=== PATIENT | female | born 1990 | race Two or more races ===

== ENCOUNTER 2020-08-11 13:16 | Emergency (ER) | payer MEDICAID ==
--- NOTE | 2020-08-11 13:55 | EDM.PDOC ---
ED HPI GENERAL MEDICAL PROBLEM - General Chief Complaint: LAB RN Problem Stated Complaint: BLEEDING 13WKS Time Seen by Provider: 08/11/20 13:42 Source of Information: Reports: Patient, Family, RN Notes Reviewed History Limitations: Reports: No Limitations - History of Present Illness INITIAL COMMENTS - FREE TEXT/NARRATIVE: 30-year-old female presents emergency department with a complaint of vaginal bleeding she is a 2 para 1 currently at 13 weeks intrauterine started having some spotting a couple days ago and then today large gush of blood large amount of clots being passed complains of only headache she is not lightheaded at all abdominal Pain Score (Numeric/FACES): 8 - Related Data Allergies Allergy/AdvReac Type Severity Reaction Status Date / Time No Known Allergies Allergy Verified 08/11/20 13:30 Home Meds: Home Meds Vit No.78/Iron/Fa [Prenatabs FA] 1 each PO DAILY 08/11/20 [History] Past Medical History LAB RN History: Reports: Social & Family History - Tobacco Use Tobacco Use Status *Q: Never Tobacco User - Recreational Drug Use Recreational Drug Use: No ED ROS GENERAL - Review of Systems Review Of Systems: See Below Constitutional: Reports: No Symptoms Respiratory: Reports: No Symptoms Cardiovascular: Reports: No Symptoms GI/Abdominal: Reports: No Symptoms : Reports: Irregular Menses ED EXAM - Physical Exam Exam: See Below Text/Narrative:: Vaginal exam done in the presence of nursing staff I did evacuate a large amount of clot and blood 3 to 400 cc from the vaginal vault the os is open unknown appreciate any products of conception at this time Exam Limited By: No Limitations General Appearance: Alert, WD/WN, No Apparent Distress Respiratory/Chest: No Respiratory Distress Course - Vital Signs Last Recorded V/S: Last Vital Signs Temp 99.3 F 08/11/20 13:31 Pulse 110 H 08/11/20 14:52 Resp 12 08/11/20 13:31 BP 110/70 08/11/20 14:52 Pulse Ox 96 08/11/20 13:31 - Orders/Labs/Meds Orders: Active Orders 24 hr Category Date Time Status ABO/RH TYPE [BBK] Stat Lab 08/11/20 14:17 Results PATIENT RETYPE [BBK] Stat Lab 08/11/20 14:17 Results RH IMMUNE GLOBULIN [BBK] Routine Lab 08/11/20 15:22 Received Ketorolac [Toradol] Med 08/11/20 15:25 Once 60 mg IM ONETIME ONE Labs: Laboratory Tests 08/11/20 08/11/20 08/11/20 Range/Units 14:02 14:02 14:17 WBC 11.8 H (4.5-11.0) K/uL RBC 4.61 (3.30-5.50) M/uL Hgb 13.2 (12.0-15.0) g/dL Hct 40.5 (36.0-48.0) % MCV 88 (80-98) fL MCH 29 (27-31) pg MCHC 33 (32-36) % Plt Count 230 (150-400) K/uL Neut % (Auto) 82 H (36-66) % Lymph % (Auto) 13 L (24-44) % [place] % (Auto) 4 (2-6) % Eos % (Auto) 0 L (2-4) % Baso % (Auto) 0 (0-1) % HCG, Quant 1240 H (0-6) mIU/mL Blood Type O NEGATIVE Departure - Departure Time of Disposition: 15:26 Disposition: Home, Self-Care 01 Condition: Fair Clinical Impression: Complete - Discharge Information Instructions: Miscarriage, [id number] Referrals: PCP,None [Primary Care Provider] - Forms: ED Department Discharge Additional Instructions: Continue to use ibuprofen as needed for pain control, please follow-up with your primary care provider or your LAB RN upon return home Sepsis Event Note (ED) - Evaluation Sepsis Screening Result: No Definite Risk - Focused Exam Vital Signs: Vital Signs Temp Pulse Resp BP Pulse Ox 08/11/20 14:52 110 H 110/70 08/11/20 13:31 99.3 F 116 H 12 142/80 H 96 - My Orders Last 24 Hours: My Active Orders 08/11/20 14:17 ABO/RH TYPE [BBK] Stat PATIENT RETYPE [BBK] Stat 08/11/20 15:22 RH IMMUNE GLOBULIN [BBK] Routine 08/11/20 15:25 Ketorolac [Toradol] 60 mg IM ONETIME ONE - Assessment/Plan Last 24 Hours: My Active Orders 08/11/20 14:17 ABO/RH TYPE [BBK] Stat PATIENT RETYPE [BBK] Stat 08/11/20 15:22 RH IMMUNE GLOBULIN [BBK] Routine 08/11/20 15:25 Ketorolac [Toradol] 60 mg IM ONETIME ONE Plan: Assessment Acuity = acute Site and laterality = complete Etiology = unknown Manifestations = cramping abdominal pain Location of injury = Home Lab values = hemoglobin stable 13.5, beta-hCG at 1240 blood type is O- ultrasound consistent with complete Plan I did review lab work and ultrasound with the parents, because of her blood type she is given 300 mcg of RhoGam, and 60 mg Toradol while in the emergency department she will follow-up with her LAB RN upon return home This note was dictated using [employer] voice recognition software please call with any questions on syntax or grammar.
--- NOTE | 2020-08-11 15:21 | CRLUS ---
INDICATION: 13w iup vaginal bleeding HISTORY: Thirteen weeks gestational age. Vaginal bleeding. COMPARISON: None. TECHNIQUE: Pelvic ultrasound. Transabdominal imaging of the pelvis was obtained. FINDINGS: Uterine corpus measures 10.5 x 5.8 x 6.6 cm. Right ovary measures 4.0 x 3.1 x 3.4 cm. Left ovary measures 3.3 x 4.0 x 2.7 cm. Endometrial complex measures 5 mm in thickness. There is no intrauterine gestational sac, fetus, or extra ovarian adnexal mass. Subsequent imaging of the endometrium at the conclusion of the exam demonstrates heterogeneity, which could indicate blood products. Benign-appearing cyst in the right ovary which measures 3 centimeters in dimension. IMPRESSION: 1. There is no IUP identified. 2. There is no extraovarian adnexal mass or significant free fluid in the rectovaginal pouch of Gio. 3. Assuming a positive test, findings suggest a of uncertain location. 4. Suggest correlation with serum beta HCG, and both sonographic and serologic follow-up are advised. Dictated by Ramirez Multani MD @ 08/11/2020 3:20:26 PM Dictated by: Ramirez Multani MD @ 08/11/2020 15:20:35 (Electronically Signed)
[2020-08-11] MEDS ORDERED: Ketorolac 60 MG/2 ML SDV IM ONE (15:25)
== END 2020-08-11 16:21 | disposition home or self-care (01) ==
LOC: JP.ED 13:16
DX: O03.9 Complete or unspecified spontaneous abortion without complication (principal)
CPT/HCPCS: 36415; 76815; 84702; 85025; 86900; 86901; 96372; 99284; J1885; J2790

== ENCOUNTER 2022-03-07 21:56 | Emergency (ER) | payer MEDICAID ==
[2022-03-08] MEDS ORDERED: Sodium Chloride 0.9% 10 ML Syringe FLUSH PRN (00:11)
[2022-03-08] MEDS ORDERED: Ketorolac 30 MG/ML SDV IVPUSH ONE (00:11)
[2022-03-08] MEDS ORDERED: Iopamidol 612 MG/ML 100 ML Bottle IV ONE (00:20)
[2022-03-08] MEDS ORDERED: Sodium Chloride 0.9% 50 ML IV SCH (00:30)
== END 2022-03-08 02:17 | disposition home or self-care (01) ==
LOC: JP.ED 21:56
DX: N83.292 Other ovarian cyst, left side (principal); E66.9 Obesity, unspecified; Z68.41 Body mass index [BMI] 40.0-44.9, adult; Z79.899 Other long term (current) drug therapy
CPT/HCPCS: 36415; 74177; 81001; 81025; 85025; 96374; 99285; J1885; J3490; Q9967; 99283

== ENCOUNTER 2024-11-16 18:13 | Emergency (ER) | payer MEDICAID ==
[2024-11-16 18:51] LABS: BASOPHILS ABSOLUTE AUTO 0.04 K/uL (0.00-0.10); BASOPHILS PERCENT AUTO 0.3 % (0.1-1.3); EOSINOPHILS ABSOLUTE AUTO 0.01 K/uL (0.00-0.40); EOSINOPHILS PERCENT AUTO 0.1 % (0.0-5.4); HEMATOCRIT 39.7 % (34.3-46.0); HEMOGLOBIN 13.2 g/dL (11.2-15.5); IMMATURE GRAN ABSOLUTE AUTO 0.04 K/uL (0.00-0.23); IMMATURE GRAN PERCENT AUTO 0.3 % (0.0-0.7); LYMPHOCYTES ABSOLUTE AUTO 1.64 K/uL (0.8-3.3); LYMPHOCYTES PERCENT AUTO 13.1 % (11.4-47.7); MEAN CORPUSCULAR HEMOGLOBIN 30.2 pg (31.6-35.5); MEAN CORPUSCULAR HGB CONC 33.2 g/dL (31.6-35.5); MEAN CORPUSCULAR VOLUME 90.8 fL (81.4-99.0); MONOCYTES ABSOLUTE AUTO 0.64 K/uL (0.20-0.90); MONOCYTES PERCENT AUTO 5.1 % (3.3-12.6); NEUTROPHILS ABSOLUTE AUTO 10.19 K/uL (1.0-7.6); NEUTROPHILS PERCENT AUTO 81.1 % (40.0-78.1); PLATELET COUNT,PLT 271 K/uL (130-375); RED BLOOD CELL COUNT 4.37 M/uL (3.77-5.24); WHITE BLOOD CELL COUNT,WBC 12.6 K/uL (3.2-11.0)
[2024-11-16] MEDS: Ketorolac 30 MG/ML SDV IVPUSH ONE (18:52)
[2024-11-16] MEDS: Sodium Chloride 0.9% 10 ML Syringe FLUSH PRN (18:55)
[2024-11-16 19:11] LABS: A/G RATIO 0.7 (1.2-2.2); ALANINE AMINOTRANSFERASE,ALT 25 U/L (12-78); ALBUMIN 2.9 g/dL (3.4-5.0); ALKALINE PHOSPHATASE 162 U/L (46-116); ANION GAP 12.7 mmol/L (5.0-14.0); ASPARTATE AMNIOTRANSFERASE,AST 21 U/L (15-37); BILIRUBIN TOTAL 0.2 mg/dL (0.2-1.0); BLOOD UREA NITROGEN,BUN 15 mg/dL (7-18); CALCIUM 9.2 mg/dL (8.5-10.1); CARBON DIOXIDE,CO2 23 mmol/L (21-32); CHLORIDE,CL 106 mmol/L (100-108); CREATININE 0.6 mg/dL (0.6-1.0); ESTIMATED GFR 121 mL/min (>60); GLUCOSE RANDOM 93 mg/dL (74-106); SODIUM,NA 142 mmol/L (140-148)
[2024-11-16 20:28] LABS: APPEARANCE,URINE CLEAR (CLEAR); BILIRUBIN,URINE NEGATIVE (NEGATIVE); COLOR,URINE YELLOW (YELLOW); GLUCOSE,URINE NEGATIVE (NEGATIVE); KETONES,URINE NEGATIVE (NEGATIVE); LEUKOCYTE ESTERASE,URINE SMALL (NEGATIVE); NITRITE,URINE NEGATIVE (NEGATIVE); OCCULT BLOOD,URINE LARGE (NEGATIVE); PH,URINE 6.5 (5.0-8.0); PROTEIN,URINE NEGATIVE (NEGATIVE); UROBILINOGEN,URINE 0.2 EU/dL (0.2-1.0)
[2024-11-16] MEDS: Sodium Chloride 0.9% 80 ML IV SCH (20:34)
[2024-11-16] MEDS: Iopamidol 612 MG/ML 100 ML Bottle IV SCH (20:34)
[2024-11-16 20:40] LABS: AMORPHOUS SEDIMENT,URINE NOT SEEN; BACTERIA,URINE FEW; EPITHELIAL CELLS,URINE RARE; MUCUS,URINE RARE
[2024-11-16] MEDS: Morphine 4 MG/ML Syringe IVPUSH ONE ×2 (21:20→22:14)
[2024-11-16] MEDS: Ondansetron 4 MG/2 ML SDV IVPUSH ONE (21:20)
[2024-11-16] MEDS: Amoxicillin/Clavulanate K 875-125 MG Tab PO ONE (21:41)
== END 2024-11-16 22:52 | disposition home or self-care (01) ==
LOC: JP.ED 18:13
DX: O99.893 Other specified diseases and conditions complicating puerperium (principal); R10.2 Pelvic and perineal pain; Z91.030 Bee allergy status; Z79.899 Other long term (current) drug therapy
CPT/HCPCS: 36415; 74177; 76856; 80053; 81001; 85025; 93976; 96374; 96375; 96376; 99283; 99284-25; A9270-GY; J1885; J2270; J2405; Q9967

== ENCOUNTER 2025-01-06 10:52 | Emergency (ER) | payer MEDICAID ==
[2025-01-06] MEDS: Sodium Chloride 0.9% 10 ML Syringe FLUSH PRN (11:26)
[2025-01-06] MEDS: Ketorolac 15 MG/ML SDV IVPUSH ONE (11:26)
[2025-01-06 12:19] LABS: A/G RATIO 0.9 (1.2-2.2); ALANINE AMINOTRANSFERASE,ALT 124 U/L (12-78); ALBUMIN 3.6 g/dL (3.4-5.0); ALKALINE PHOSPHATASE 152 U/L (46-116); ANION GAP 12.1 mmol/L (5.0-14.0); ASPARTATE AMNIOTRANSFERASE,AST 103 U/L (15-37); BILIRUBIN TOTAL 0.5 mg/dL (0.2-1.0); BLOOD UREA NITROGEN,BUN 13 mg/dL (7-18); CALCIUM 8.9 mg/dL (8.5-10.1); CARBON DIOXIDE,CO2 25 mmol/L (21-32); CHLORIDE,CL 103 mmol/L (100-108); CREATININE 0.8 mg/dL (0.6-1.0); EST CRCL DRUG DOSING (CG) 71.17 mL/min; ESTIMATED GFR 99 mL/min (>60); GLUCOSE RANDOM 176 mg/dL (74-106); POTASSIUM,K 3.8 mmol/L (3.6-5.2); PROTEIN TOTAL,TP 7.7 g/dL (6.4-8.2); SODIUM,NA 140 mmol/L (140-148)
[2025-01-06 12:20] LABS: C-REACTIVE PROTEIN < 0.50 mg/dL (<0.50)
[2025-01-06] MEDS: Sodium Chloride 0.9% 1,000 ML IV ONE (12:40)
[2025-01-06] MEDS: Iopamidol 612 MG/ML 100 ML Bottle IV SCH (14:10)
[2025-01-06] MEDS: Sodium Chloride 0.9% 10 ML Syringe FLUSH ONE (14:10)
[2025-01-06] MEDS: Sodium Chloride 0.9% 80 ML IV SCH (14:10)
[2025-01-06 15:10] LABS: BASOPHILS ABSOLUTE AUTO 0.04 K/uL (0.00-0.10); BASOPHILS PERCENT AUTO 0.4 % (0.1-1.3); HEMATOCRIT 39.7 % (34.3-46.0); HEMOGLOBIN 12.9 g/dL (11.2-15.5); IMMATURE GRAN ABSOLUTE AUTO 0.04 K/uL (0.00-0.23); IMMATURE GRAN PERCENT AUTO 0.4 % (0.0-0.7); LYMPHOCYTES PERCENT AUTO 22.6 % (11.4-47.7); MEAN CORPUSCULAR HEMOGLOBIN 28.8 pg (31.6-35.5); MEAN CORPUSCULAR HGB CONC 32.5 g/dL (31.6-35.5); MEAN CORPUSCULAR VOLUME 88.6 fL (81.4-99.0); MONOCYTES ABSOLUTE AUTO 0.58 K/uL (0.20-0.90); MONOCYTES PERCENT AUTO 5.7 % (3.3-12.6); NEUTROPHILS PERCENT AUTO 70.9 % (40.0-78.1); PLATELET COUNT,PLT 267 K/uL (130-375); RED BLOOD CELL COUNT 4.48 M/uL (3.77-5.24); WHITE BLOOD CELL COUNT,WBC 10.2 K/uL (3.2-11.0)
== END 2025-01-06 15:50 | disposition home or self-care (01) ==
LOC: JP.ED 10:52
DX: K76.0 Fatty (change of) liver, not elsewhere classified (principal); R10.13 Epigastric pain; E66.9 Obesity, unspecified; Z68.41 Body mass index [BMI] 40.0-44.9, adult; Z91.030 Bee allergy status
CPT/HCPCS: 36415; 74177; 80053; 81025; 83605; 83690; 85025; 85610; 86140; 96361; 96374; 99284; 99285; J1885; J7030; Q9967